=== PATIENT | male | born 1970 | race Two or more races ===

== ENCOUNTER 2020-02-20 11:37 | Emergency (ER) | payer SELFPAY ==
--- NOTE | 2020-02-20 12:19 | RAD ---
EXAM: CHEST ONE VIEW HISTORY: Chest pain. Elevated blood sugar. COMPARISON: None FINDINGS: The cardiac silhouette and pulmonary vasculature are within normal limits. The lungs are clear. Evide nce of remote left acromioclavicular joint separation with calcifications seen in the region of the coracoclavicular ligament and inferior to the distal left clavicle. IMPRESSION: No acute cardiopulmonary process.
[2020-02-20 12:38] LABS: Hemoglobin 15.6 g/dL (14.0-18.0); Mean Corpuscular HGB CONC 31.6 g/dL (32.0-36.0); Mean Corpuscular Hemoglobin 29.8 pg (27.0-31.0); Mean Corpuscular Volume 94.4 fL (78.0-98.0); Platelet Count 184 thou/uL (130-400); RBC Distribution Width 11.4 % (11.5-14.5); Red Blood Cell (RBC) Count 5.23 mill/uL (4.70-6.10); White Blood Cell (WBC) Count 29.4 thou/uL (4.8-10.8)
[2020-02-20 12:49] LABS: Base Excess-Venous -24.7 mmol/L (-2.0 to 3.0); Bicarbonate (HCO3v) 5.3 mmol/L (22.0-28.0); CO2 Tension (PvCO2) 21.6 mmHg (40.0-50.0); Calcium, Ionized 0.98 mmol/L (1.15-1.33); Chloride 101 mmol/L (98-107); Hemoglobin - Calc 17.9 g/dL (14.0-18.0); Potassium 5.7 mmol/L (3.5-5.1); Sodium 122 mmol/L (138-145); vO2 Saturation-calc 98.5 % (60.0-85.0)
[2020-02-20 13:07] LABS: Bacteria/HPF None Seen HPF (None Seen); Bilirubin Negative (Negative); Blood, Urine 2+ (Negative); Clarity Clear (Clear); Glucose, Urine (Dipstick) Greater than 1000 mg/dL (Negative); Ketone, Urine Greater than 150 mg/dL (Negative); Leukocyte Negative Leu/uL (Negative); Nitrite Negative (Negative); Protein, Urine (Dipstick) 50 mg/dL (Neg-Trace); RBC/HPF None Seen HPF (0-3); Specific Gravity, Urine 1.023 (1.002-1.036); Squamous Epithelial 0-3 HPF (0-3); Urobilinogen Normal mg/dL (Less than 2); WBC/HPF 0-3 HPF (0-3)
[2020-02-20 13:09] LABS: ALT (SGPT) 16 U/L (8-55); AST (SGOT) 17 U/L (5-34); Albumin 3.8 g/dL (3.5-5.0); Alkaline Phosphatase 120 U/L (40-110); BUN (Urea Nitrogen) 50 mg/dL (8.9-20.6); Bilirubin, Total 0.3 mg/dL (0.2-1.2); Calc. Creatinine Clearance 0 mL/min (70-130); Calcium 9.7 mg/dL (7.8-10.44); Chloride 90 mmol/L (98-107); Globulin 4.5 g/dL (2.4-3.5); Potassium 5.3 mmol/L (3.5-5.1); Protein, Total 8.3 g/dL (6.0-8.3); Sodium 129 mmol/L (136-145)
[2020-02-20] MEDS ORDERED: INSULIN REGULAR IN 0.9 % NACL 100 UNIT/100 ML BAG ONE (13:09)
[2020-02-20 13:10] LABS: Band 20 % (5-11); Lymphocytes 7 % (21-51); MDiff Complete? YES; Monocytes 6 % (0-10); Neutrophil 61 % (42-75); Platelet Morphology Comment Appears Adequate; RBC Morphology Normal; Reactive Lymphocytes 5 % (0-10)
[2020-02-20 13:11] LABS: Acetaminophen Less than 6.0 mcg/mL (10.0-30.0); Alcohol Less than 10 mg/dL (Less than 10); Salicylate Less than 8.0 mg/dL (15.0-30.0)
[2020-02-20 13:23] LABS: Carbon Dioxide Less than 8 mmol/L (22-29); Glucose 654 mg/dL (70-105)
[2020-02-20 13:33] LABS: Amphetamine Not Detected (NotDetected); Barbiturates Screen Not Detected (NotDetected); Benzodiazepine Screen Not Detected (NotDetected); Cocaine Metabolite Screen Not Detected (NotDetected); Medtox Control Line Valid? VALID (VALID); Medtox Reader # READER 4; Methadone Not Detected (NotDetected); Methamphetamine Not Detected (NotDetected); Opiate Screen Not Detected (NotDetected); Oxycodone Screen Not Detected (NotDetected); Phencyclidine (PCP) Not Detected (NotDetected); THC/Cannabinoid Screen Not Detected (NotDetected); Tricyclic Screen Not Detected (NotDetected)
[2020-02-20] MEDS ORDERED: Acetaminophen 325 MG TAB PO PRN (14:23)
[2020-02-20] MEDS ORDERED: Senokot S 8.6-50 MG TAB PO PRN (14:23)
[2020-02-20] MEDS ORDERED: Ondansetron PF 4 MG/2 ML Vial IVP PRN (14:23)
[2020-02-20] MEDS ORDERED: Sodium Chloride 0.9% 1,000 ML IV PRN ×4 (14:25)
[2020-02-20] MEDS ORDERED: Dextrose 5 %-0.45 % NaCl 1,000 ML IV PRN (14:25)
[2020-02-20] MEDS ORDERED: NS 0.9% w/ 20 MEQ KCL 1,000 ML IV PRN ×2 (14:25)
[2020-02-20] MEDS ORDERED: Electrolyte Replacement Protocol 1 EACH IVPB ONE (14:25)
[2020-02-20] MEDS ORDERED: D5 1/2 NS w/20 mEq KCL 1,000 ML IV PRN (14:25)
[2020-02-20] MEDS ORDERED: HUMULIN R 100 UNITS in Sodium Chloride 0.9% 100 ML IVPB SCH (14:30)
[2020-02-20 16:22] LABS: SARS-CoV-2 NAA Rapid Test DETECTED (NotDetected)
--- NOTE | 2020-02-20 16:39 | HP ---
Chief complaint: Hyperglycemia HISTORY OF PRESENT ILLNESS: A 49-year-old male with history of type 2 diabetes mellitus diagnosed in April 2019, on metformin, presenting with DKA. 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 On the way, he did not do very well. He stayed and was communicating in the phone during the entire time, he was quite sleepy, a lot of episodes of emesis. She asked him to call 911. The patient on arrival t the ER, short of breath and quite disoriented. His blood glucose was 654, potassium of 5.5, and creatinine of 3.26 and anion gap of 33 and blood pH of 6.9. Insulin drip started along with IV fluid. Chest x-ray negative. COVID rapid screen is pending. He is a entry level truck driver. Blood pressure normotensive with 130/94. The patient is alert and oriented x3 currently, but he also looks little lethargic. Information gathered from his . Currently, insulin running at 9 units an hour and his blood glucose is about 400. When he was diagnosed with diabetes, his A1c was 9 and he started on metformin and the latest A1c is around 7. REVIEW OF SYSTEMS: Not obtainable. ALLERGIES: HE HAS NO DRUG ALLERGY. MEDICATIONS: He takes metformin 500 mg twice a day; hydrochlorothiazide, unknown dose. PAST SURGICAL HISTORY: None. SOCIAL HISTORY: The patient lives with his in [place] near [place]. Does not smoke or drink alcohol. FAMILY HISTORY: Noncontributory. PHYSICAL EXAMINATION: VITAL SIGNS: He is afebrile, normotensive, currently sinus rhythm in the tele. His sats are good around 98%. GENERAL: He is nontoxic appearing. Talked to his . HEENT: Pupils are equal, round, and reactive to light. Anicteric. Mucous membranes moist. CARDIOVASCULAR: Regular rate and rhythm without murmurs, rubs, or gallops. LUNGS: Clear to auscultation bilaterally without wheezing, rales, or rhonchi. ABDOMEN: Soft, nontender, nondistended. Good bowel sounds. EXTREMITIES: Without pitting edema. NEUROLOGIC: No focal deficits. He is little lethargic. Other than that, he is moving his extremities spontaneously. LABORATORY DATA: His white count 29,000, platelet is 184, hemoglobin 15.6. His sodium 129, potassium 5.3, bicarb is 8, BUN 50, creatinine 3.26. Alkaline phosphatase 120, AST 17, ALT 16. His UA, ketones and glucosuria. Plasma alcohol less than 10. Chest x-ray, no acute cardiopulmonary process. IMPRESSION AND PLAN: A 49-year-old male with a history of type 2 diabetes mellitus diagnosed last year, presenting with, 1. Diabetic ketoacidosis. 2. Pseudohyperkalemia, pseudohyponatremia, severe anion gap metabolic acidosis secondary to DKA, acute kidney injury secondary to dehydration and hyperglycemia. The patient will be admitted in the unit. DKA protocol will be followed. Once the anion gap closed, we can transition him to very low dose insulin at this time. Keep him n.p.o. The patient naive to insulin as he is taking metformin. We will correct the electrolyte abnormalities as needed. The patient will be admitted shortly to the unit. He is full code. Job ID: [id number] [facility]
[2020-02-20 17:12] LABS: BUN (Urea Nitrogen) 43 mg/dL (8.9-20.6); Calc. Creatinine Clearance 0 mL/min (70-130); Chloride 97 mmol/L (98-107); Potassium 5.1 mmol/L (3.5-5.1); Sodium 132 mmol/L (136-145)
[2020-02-20 17:13] LABS: Calcium 10.2 mg/dL (7.8-10.44); Glucose 418 mg/dL (70-105)
[2020-02-20 17:23] LABS: Carbon Dioxide Less than 8 mmol/L (22-29)
[2020-02-20 17:55] LABS: Base Excess-Venous -15.9 mmol/L (-2.0 to 3.0); Bicarbonate (HCO3v) 10.6 mmol/L (22.0-28.0); CO2 Tension (PvCO2) 27.5 mmHg (40.0-50.0); Calcium, Ionized 1.19 mmol/L (1.15-1.33); Chloride 108 mmol/L (98-107); Hemoglobin - Calc 17.1 g/dL (14.0-18.0); Potassium 4.1 mmol/L (3.5-5.1); Sodium 132 mmol/L (138-145); T. Carbon Dioxide 11.4 mmol/L (22.0-28.0); vO2 Saturation-calc 42.8 % (60.0-85.0)
[2020-02-20 19:13] LABS: Anion Gap 27 mmol/L (10-20); BUN (Urea Nitrogen) 40 mg/dL (8.9-20.6); Calc. Creatinine Clearance 0 mL/min (70-130); Calcium 9.1 mg/dL (7.8-10.44); Chloride 104 mmol/L (98-107); Glucose 219 mg/dL (70-105); Sodium 136 mmol/L (136-145)
[2020-02-20 19:20] LABS: Carbon Dioxide 9 mmol/L (22-29)
[2020-02-20] MEDS ORDERED: Acetaminophen 500 MG TAB ONE (20:34)
[2020-02-20 21:23] LABS: Anion Gap 23 mmol/L (10-20); BUN (Urea Nitrogen) 37 mg/dL (8.9-20.6); Calc. Creatinine Clearance 0 mL/min (70-130); Carbon Dioxide 12 mmol/L (22-29); Chloride 105 mmol/L (98-107); Glucose 190 mg/dL (70-105); Potassium 3.6 mmol/L (3.5-5.1); Sodium 136 mmol/L (136-145)
[2020-02-21] MEDS ORDERED: Enoxaparin Sodium 30 MG/0.3 ML SYRINGE SC SCH (09:00)
== END 2020-02-20 21:05 | disposition short-term general hospital (02) ==
LOC: ERS 11:37
DX: E11.10 Type 2 diabetes mellitus with ketoacidosis without coma (principal); N17.9 Acute kidney failure, unspecified; U07.1 COVID-19; Z79.84 Long term (current) use of oral hypoglycemic drugs
CPT/HCPCS: 36415; 36416; 71045; 80053; 80306; 80307; 81003; 81015; 82330; 82550; 82803; 85025; 93005; 96365; 96366; U0002